=== PATIENT | female | born 1980 | race American Indian/Alaskan Native ===

== ENCOUNTER 2017-10-28 23:38 | Emergency (ER) | payer SELFPAY ==
[2017-10-29] MEDS ORDERED: ASPIRIN PO ONE (00:31)
[2017-10-29 00:50] LABS: Basophils % (Auto) 0.8 % (0.0-1.8); Eosinophils # (Auto) 0.3 K/mm3 (0.0-0.4); Eosinophils % (Auto) 6.1 % (0.0-4.3); Hematocrit 38.4 % (30.3-42.9); Hemoglobin 12.3 gm/dl (10.1-14.3); Mean Corpuscular HGB Conc 32 % (30-34); Mean Corpuscular Volume 81 fl (79-97); Monocytes # (Auto) 0.5 K/mm3 (0.0-0.8); Monocytes % (Auto) 10.5 % (0.0-7.3); Platelet Count 392 K/mm3 (140-440); Red Blood Count 4.74 M/mm3 (3.65-5.03); Red Cell Distribution Width 13.5 % (13.2-15.2)
[2017-10-29 00:54] LABS: Mean Corpuscular Hemoglobin 26 pg (28-32)
[2017-10-29 01:07] LABS: BUN/Creatinine Ratio 14; Blood Urea Nitrogen 7 mg/dL (7-17); Calcium 8.8 mg/dL (8.4-10.2); Hemolysis Index 7
[2017-10-29 02:05] LABS: Bilirubin,Urine NEG (Negative); Blood,Urine SM (Negative); Color,Urine Yellow (Yellow); Protein,Urine <15 mg/dL mg/dL (Negative); Urobilinogen,Urine < 2.0 mg/dL (<2.0)
[2017-10-29] MEDS ORDERED: ECOTRIN PO ONE (02:50)
[2017-10-29 03:03] VITALS: BP 130/90
[2017-10-29] MEDS ORDERED: DECADRON IM ONE (03:31)
--- NOTE | 2017-10-29 04:21 | Emergency Department Report ---
ED Chest Pain HPI - General Chief Complaint: Chest Pain Stated Complaint: CHEST PAIN Time Seen by Provider: 10/29/17 03:31 Source: patient Mode of arrival: Ambulatory Limitations: No Limitations - History of Present Illness Initial Comments: Patient with intermittent sternal chest pain, nonradiating. Worse with breathing. Not exertional. Nonpleuritic. Not affected by food. Patient did try her albuterol inhaler, but it did not help. She has never had chest pain before. So, she came to the ER for evaluation. Denies history of smoking or family history of ACS. Severity scale (0 -10): 5 Quality: sharp - Related Data Allergies Allergy/AdvReac Type Severity Reaction Status Date / Time No Known Allergies Allergy Unverified 06/24/15 11:09 Heart Score - HEART Score History: Slightly suspicious EKG: Normal Age: < 45 Risk factors: No known risk factors Troponin: < normal limit HEART Score: 0 ED Review of Systems ROS: Stated complaint: CHEST PAIN Other details as noted in HPI Comment: All other systems reviewed and negative ENT: congestion Respiratory: denies: shortness of breath, SOB with exertion, SOB at rest, wheezing Cardiovascular: chest pain. denies: dyspnea on exertion, orthopnea ED Past Medical Hx - Past Medical History Previous Medical History?: Yes Hx Seizures: Yes Hx Asthma: Yes - Surgical History Past Surgical History?: Yes Additional Surgical History: hysterecomy. c-sectionx2. D&C x 3 - Social History Smoking Status: Never Smoker Substance Use Type: None ED Physical Exam - General Limitations: No Limitations General appearance: alert, in no apparent distress - Head Head exam: Present: atraumatic, normocephalic - Eye Eye exam: Present: normal appearance - ENT ENT exam: Present: mucous membranes moist - Neck Neck exam: Present: normal inspection - Respiratory Respiratory exam: Present: normal lung sounds bilaterally. Absent: respiratory distress - Cardiovascular Cardiovascular Exam: Present: regular rate, normal rhythm, other (reproducible chest wall tenderness). Absent: systolic murmur, diastolic murmur, rubs, gallop - GI/Abdominal GI/Abdominal exam: Present: soft, normal bowel sounds - Extremities Exam Extremities exam: Present: normal inspection - Back Exam Back exam: Present: normal inspection - Neurological Exam Neurological exam: Present: alert, oriented X3 - Psychiatric Psychiatric exam: Present: normal affect, normal mood - Skin Skin exam: Present: warm, dry, intact, normal color. Absent: rash ED Course Vital Signs 10/29/17 10/29/17 10/29/17 00:26 02:51 02:55 Temperature 97.9 F Pulse Rate 87 75 70 Respiratory 12 13 Rate Blood Pressure 129/84 130/90 Blood Pressure [Right] O2 Sat by Pulse 98 100 Oximetry 10/29/17 03:00 Temperature 97.7 F Pulse Rate 74 Respiratory 14 Rate Blood Pressure Blood Pressure 130/90 [Right] O2 Sat by Pulse 100 Oximetry QUE score - Que Score Age > 65: (0) No Aspirin use within the Past 7 Days: (0) No 3 or more CAD Risk Factors: (0) No 2 or more Angina events in past 24 hrs: (0) No Known CAD with more than 50% Stenosis: (0) No Elevated Cardiac Markers: (0) No ST Deviation Greater than 0.5mm: (0) No QUE Score: 0 ED Medical Decision Making - Lab Data Result diagrams: 10/29/17 00:35 10/29/17 00:35 - EKG Data -: EKG Interpreted by Me EKG shows normal: sinus rhythm, axis, intervals, QRS complexes, ST-T waves Rate: normal - Radiology Data Radiology results: image reviewed interpreted by me: no acute process - Medical Decision Making 36-year-old female past medical history of asthma that presents to the ER with intermittent chest pain. EKG is nonischemic. Lab work is unremarkable. Chest pain is reproducible on physical exam. Likely patient suffering from costochondritis. She is low risk by QUE score. perc Negative. Patient will be started on Tylenol thousand milligrams every 6 hours for the next 5 days. She has also been battling mild asthma exacerbation secondary to her rhinorrhea. The patient will be given a one-time dose of Decadron to help with her flares for the next couple days. Critical care attestation.: If time is entered above; I have spent that time in minutes in the direct care of this critically ill patient, excluding procedure time. ED Disposition Clinical Impression: Costochondritis, acute Disposition: DC-01 TO HOME OR SELFCARE Is pt being admited?: No Condition: Stable Instructions: Costochondritis (ED) Additional Instructions: Please start taking 1000 mg tylenol every 6 hours for the next 5 days for your chest pain. Referrals: LOLA WATT MD [Primary Care Provider] - 3-5 Days
--- NOTE | 2017-10-29 07:21 | XRay Report ---
FINAL REPORT EXAM: XR CHEST ROUTINE 2V HISTORY: CP/SANTIAGO TECHNIQUE: PA and lateral chest radiographs PRIORS: None. FINDINGS: No mediastinal shift. Cardiac silhouette is not enlarged. No pneumothorax, effusion, or focal pulmonary opacity. No acute skeletal finding. IMPRESSION: No focal pulmonary opacity.
== END 2017-10-29 04:40 | disposition home or self-care (01) ==
LOC: ED 23:38
DX: M94.0 Chondrocostal junction syndrome [Tietze] (principal); J45.909 Unspecified asthma, uncomplicated; Z90.710 Acquired absence of both cervix and uterus
CPT/HCPCS: 36415; 71046; 80048; 81001; 84484; 85025; 93005; 93010; 96372; 99284; J1100